=== PATIENT | female | born 1990 | race Caucasian/White ===

== ENCOUNTER 2022-03-27 14:06 | Emergency (ER) | payer OTHER ==
[~2022-03-27] VITALS: Ht 165.1 cm; Wt 71.2 kg
[2022-03-27 14:24] VITALS: BP 119/75
[2022-03-27] MEDS ORDERED: NAPR-54 PO (15:24)
[2022-03-27 16:04] VITALS: BP 108/65
== END 2022-03-27 16:04 | disposition home or self-care (01) ==
LOC: MED 14:06
DX: S63.501A Unspecified sprain of right wrist, initial encounter (principal); Z79.1 Long term (current) use of non-steroidal anti-inflammatories (NSAID); W18.39XA Other fall on same level, initial encounter; Y92.89 Other specified places as the place of occurrence of the external cause; Y93.89 Activity, other specified; Y99.8 Other external cause status
CPT/HCPCS: 29125; 73110; 99283; Q0092

== ENCOUNTER 2023-09-14 13:35 | Emergency (ER) | payer SELFPAY ==
[~2023-09-14] VITALS: Ht 167.6 cm; Wt 76.7 kg
[~2023-09-14 13:35] MED LIST: NAPR-337 PO
[2023-09-14 14:25] VITALS: BP 109/67; PULSE 72; RESP 20; TEMP 98.2; O2SAT 100
[2023-09-14] MEDS ORDERED: NAPR-337 PO (17:07)
[2023-09-14] MEDS ORDERED: METH-1681 PO (17:07)
[2023-09-14] MEDS: IBUPROFEN 600 MG TAB PO ONE (17:16)
== END 2023-09-14 17:17 | disposition home or self-care (01) ==
LOC: MED 13:35
DX: S39.92XA Unspecified injury of lower back, initial encounter (principal); Z79.899 Other long term (current) drug therapy; V00.311A Fall from snowboard, initial encounter; Y93.89 Activity, other specified; Y93.23 Activity, snow (alpine) (downhill) skiing, snowboarding, sledding, tobogganing and snow tubing; Y99.8 Other external cause status
CPT/HCPCS: 72220; 99283